=== PATIENT | female | born 1940 | race Caucasian/White ===

== ENCOUNTER → 2021-01-15 | Outpatient (CLI) | payer MEDICARE, MEDICAID | END | disposition home or self-care (01) | LOC: RAD/SH 01:36 | PROVIDERS: ATTEND Internal Medicine | DX: R13.10 Dysphagia, unspecified (principal); R11.0 Nausea ==

== ENCOUNTER 2021-05-14 20:48 | Emergency (ER) | payer MEDICARE, MEDICAID ==
[~2021-05-14] VITALS: Ht 165.1 cm; Wt 59.0 kg
[2021-05-14 22:27] LABS: BASO % 0.4 % (0.0-1.0); EOS % 0.1 % (1.0-4.0); HEMATOCRIT 44.8 % (37.0-47.0); LYMPH # 2.2 10*3/uL (1.3-4.4); MEAN CELL VOLUME 89.4 fl (81.0-99.0); MEAN CORPUSCULAR HGB 29.7 pg (27.0-31.0); MEAN CORPUSCULAR HGB CONC 33.3 g/dl (33.0-37.0); MONO # 0.9 10*3/uL (0.1-1.0); NEUT # 6.9 10*3/uL (2.3-7.9); NEUT % 67.8 % (47.0-73.0); PLATELET COUNT AUTOMATED 363 10*3/uL (130-400); RED BLOOD COUNT 5.01 10*6/uL (4.10-5.10); WHITE BLOOD COUNT 10.2 10*3/uL (4.8-10.8)
[2021-05-14 22:50] LABS: ALBUMIN 1.4 gm/dl (3.1-4.5); ALKALINE PHOSPHATASE 187 U/L (45-117); BUN 17 mg/dl (7-24); CHLORIDE 96 mmol/L (98-107); CREATININE 0.58 mg/dL (0.55-1.02); POTASSIUM 3.1 mmol/L (3.5-5.1); SGOT/AST 44 IU/L (3-35); SGPT/ALT 37 U/L (12-78); SODIUM 135 mmol/L (136-145); TOTAL PROTEIN 5.7 gm/dL (6.4-8.2)
[2021-05-15] MEDS ORDERED: AUGMENTIN 875875 MG PO (04:16)
== END 2021-05-15 05:44 ==
LOC: ED 20:48
PROVIDERS: Emergency Medicine
DX: J18.9 Pneumonia, unspecified organism (principal)